=== PATIENT | female | born 1965 | race Caucasian/White ===

== ENCOUNTER 2016-11-15 08:08 | Day surgery (SDC) | payer MEDICAID ==
[~2016-11-15 08:08] MED LIST: Lactated Ringers 1,000 ML IV SCH; Lidocaine 2% 5 ML SDV ONE; Propofol 200 MG/20 ML SDV ONE; Sodium Chloride 0.9% 10 ML Syringe FLUSH PRN; Sodium Chloride 0.9% 2.5 ML Syringe FLUSH PRN
--- NOTE | 2016-11-15 08:53 | PCM.PREANE ---
Preanesthetic Assessment - Anesthesia/Transfusion/Family Hx Anesthesia History: Prior Anesthesia Without Reaction Other Type of Anesthesia Reaction Comment: "slow to wake" Family History of Anesthesia Reaction: No Transfusion History: Prior Transfusion Without Reaction - Review of Systems General: No Symptoms Pulmonary: No Symptoms Cardiovascular: No Symptoms 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: Constipation Neurological: No Symptoms Other: Reports: None - Physical Assessment NPO Status Date: 11/14/16 NPO Status Time: 22:00 O2 Sat by Pulse Oximetry: 97 Respiratory Rate: 16 Vital Signs: Last Vital Signs Temp 36.7 C 11/15/16 08:35 Pulse 87 11/15/16 08:35 Resp 16 11/15/16 08:35 BP 113/56 L 11/15/16 08:35 Pulse Ox 97 11/15/16 08:35 Height: 1.7 m Weight: 102.512 kg ASA Class: 3 Mental Status: Alert & Oriented x3 Airway Class: Mallampati = 2 Dentition: Reports: Normal Dentition Thyro-Mental Finger Breadths: 2 Mouth Opening Finger Breadths: 2 ROM/Head Extension: Limited/Partial Lungs: Clear to auscultation, Normal respiratory effort Cardiovascular: Regular Rate, Regular Rhythm - Lab Values: Laboratory Last Values POC Glucose 115 mg/dL (60-110) H 11/15/16 08:26 - Allergies Allergies/Adverse Reactions: Allergies Allergy/AdvReac Type Severity Reaction Status Date / Time aloe vera [From Flexall] Allergy Anxiety Verified 11/12/16 10:37 menthol [From Flexall] Allergy Anxiety Verified 11/12/16 10:37 Penicillins Allergy Hives Verified 11/12/16 10:37 vitamin E (d-alpha Allergy Anxiety Verified 11/12/16 10:37 tocopherol) [From Flexall] - Blood Blood Available: No - Anesthesia Plan Pre-Op Medication Ordered: None - Acknowledgements Anesthesia Type Planned: MAC Pt an Appropriate Candidate for the Planned Anesthesia: Yes Alternatives and Risks of Anesthesia Discussed w Pt/Guardian: Yes Pt/Guardian Understands and Agrees with Anesthesia Plan: Yes PreAnesthesia Questionnaire HEENT History: Reports: Other (see below) Other HEENT History: wears glasses Cardiovascular History: Reports: High cholesterol 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 History: Reports: Chronic constipation, Other (see below) Other 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 History: 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: Musculoskeletal History: Reports: Arthritis, Back pain, chronic Neurological History: Reports: Migraines Psychiatric History: Reports: Anxiety, Depression Endocrine/Metabolic History: Reports: Diabetes, type II, Obesity/BMI 30+ Hematologic History: Reports: Blood transfusion(s) Other Hematologic History: transfusion with back surgery - Past Surgical History Head Surgeries/Procedures: Reports: None GI Surgical History: Reports: Cholecystectomy Neurological Surgical History: Reports: C-Spine (ACDF), Lumbar spine, Other ( see below) Other Neurological Surgeries/Procedures: back and neck fusion - SUBSTANCE USE Smoking Status *Q: Current Some Day Smoker Tobacco Use Within Last Twelve Months: Cigarettes Recreational Drug Use History: No - HOME MEDS Home Medications: Home Meds Aspirin [[place] Aspirin] 81 mg PO DAILY 11/12/16 [History] Celecoxib [CeleBREX] 200 mg PO BID 11/12/16 [History] Citalopram Hydrobromide [Celexa] 40 mg PO DAILY 11/12/16 [History] Diazepam [Valium] 10 mg PO DAILY 11/12/16 [History] Gabapentin [Neurontin] 2 tab PO DAILY 11/12/16 [History] Ibuprofen 800 mg PO ASDIRECTED PRN 11/12/16 [History] Insulin Glargine,Hum.Rec.Anlog [[place] Solostar] 20 units SUBCUT DAILY 11/12/16 [History] Montelukast Sodium [Singulair] 10 mg PO DAILY 11/12/16 [History] Pantoprazole Sodium [Protonix] 40 mg PO DAILY 11/12/16 [History] atorvaSTATin Calcium [Atorvastatin Calcium] 20 mg PO DAILY 11/12/16 [History] glipiZIDE [Glipizide Xl] 5 mg PO DAILY 11/12/16 [History] - CURRENT (IN HOUSE) MEDS Current Meds: Current Medications Lactated Ringer's (Ringers, Lactated) 1,000 mls @ 125 mls/hr IV ASDIRECTED JOVANI Last Admin: 11/15/16 08:34 Dose: 125 mls/hr Sodium Chloride (Saline Flush) 10 ml FLUSH ASDIRECTED PRN PRN Reason: Keep Vein Open Sodium Chloride (Saline Flush) 2.5 ml FLUSH ASDIRECTED PRN PRN Reason: Keep Vein Open Discontinued Medications Lidocaine (Xylocaine-Mpf 2%) Confirm Administered Dose 5 ml .ROUTE .STK-MED ONE Stop: 11/15/16 07:41 Propofol (Diprivan 20 Ml) Confirm Administered Dose 400 mg .ROUTE .STK-MED ONE Stop: 11/15/16 07:41
--- NOTE | 2016-11-15 11:21 | PCM48HPAN ---
Post Anesthesia Note - EVALUATION WITHIN 48HRS OF ANESTHETIC Vital Signs in Normal Range: Yes Patient Participated in Evaluation: Yes Respiratory Function Stable: Yes Airway Patent: Yes Cardiovascular Function Stable: Yes Hydration Status Stable: Yes Pain Control Satisfactory: Yes Nausea and Vomiting Control Satisfactory: Yes Mental Status Recovered: Yes - COMMENTS/OBSERVATIONS Free Text/Narrative:: no anesthesia problems. Patient skipped recovery room phase of postoperative care.
--- NOTE | 2016-11-15 18:02 | OR ---
SURGEON: GILMER PRESTON MD DATE OF PROCEDURE: 11/15/2016 PREOPERATIVE DIAGNOSIS: Screening colonoscopy. POSTOPERATIVE DIAGNOSES: Diverticulosis, anal condylomas, and anal skin tags. PROCEDURE PERFORMED: Screening colonoscopy. INSTRUMENT USED: Olympus colonoscope. ANESTHESIA: MAC. EXTENT OF EXAM: To the cecum. PREPARATION: Good. LIMITATIONS: None. INDICATIONS: The patient is a 51-year-old female, who presents for first time screening colonoscopy. The patient and I discussed the procedure as well as expected perioperative course. The patient and I discussed the risks including bleeding, infection, or damage to surrounding structures, including perforation. The patient verbalized understanding and wishes to proceed. PROCEDURE IN DETAIL: The patient was brought to the endoscopy suite and placed in left lateral decubitus position. A time-out was completed verifying the patient's name, age, date of , allergies, and procedure to be performed. The monitored anesthesia care was induced and continuous oxygen was provided via nasal cannula throughout the procedure. After adequate sedation was achieved, a digital rectal exam was performed. The patient had a large number of anal skin tags as well as grade 2 hemorrhoids, and anal condylomata on the skin tags. A photograph was taken of these. The remainder of the digital rectal exam was normal. A well lubricated colonoscope was then inserted into the rectum and advanced under direct visualization to the level of the cecum. The cecum was identified by both visual and anatomic landmarks. A photograph was taken of the cecal cap as well as with the scope retroflexed within the cecum. The scope was then fully withdrawn while examining the color, texture, anatomy, and integrity of the mucosa from the cecum to the anal canal. The findings were consistent with diverticulosis. The scope was then brought into the rectum and retroflexed to allow visualization of the anal canal opening. This was normal. The scope was then straightened out and removed from the patient. The patient was then transferred to the recovery room in stable condition. Cecum to anus time was 13 minutes. ENDOSCOPIC DIAGNOSES: 1. Diverticulosis. 2. Grade 2 hemorrhoids. 3. Anal condylomata. RECOMMENDATIONS: Follow up in clinic in 2 weeks. JAVI LIM /[id number] ROGELIO
== END 2016-11-15 11:20 | disposition home or self-care (01) ==
LOC: MW.SDS 08:08
PROVIDERS: ATTEND Surgery
PROC: 0DJD8ZZ Inspection of Lower Intestinal Tract, Via Natural or Artificial Opening Endoscopic (ICD-10-PCS; principal; 2016-11-15)
DX: Z12.11 Encounter for screening for malignant neoplasm of colon (principal); K64.1 Second degree hemorrhoids; K64.4 Residual hemorrhoidal skin tags; A63.0 Anogenital (venereal) warts; K57.30 Diverticulosis of large intestine without perforation or abscess without bleeding; Z88.0 Allergy status to penicillin; Z88.8 Allergy status to other drugs, medicaments and biological substances; E78.00 Pure hypercholesterolemia, unspecified; K59.09 Other constipation; M19.90 Unspecified osteoarthritis, unspecified site; G89.29 Other chronic pain; M54.9 Dorsalgia, unspecified; F41.9 Anxiety disorder, unspecified; F32.9 Major depressive disorder, single episode, unspecified; E11.9 Type 2 diabetes mellitus without complications; E66.9 Obesity, unspecified; F17.210 Nicotine dependence, cigarettes, uncomplicated; Z98.1 Arthrodesis status; Z90.49 Acquired absence of other specified parts of digestive tract; Z98.890 Other specified postprocedural states; Z79.4 Long term (current) use of insulin; Z79.84 Long term (current) use of oral hypoglycemic drugs; Z79.82 Long term (current) use of aspirin; Z79.899 Other long term (current) drug therapy
CPT/HCPCS: 36415; 45378; 82962; 84703; J7120; 00810; J2704

== ENCOUNTER 2016-11-27 06:22 | Day surgery (SDC) | payer MEDICAID ==
[~2016-11-27 06:22] MED LIST changes: -Lidocaine 2% 5 ML SDV ONE; -Propofol 200 MG/20 ML SDV ONE; -Sodium Chloride 0.9% 10 ML Syringe FLUSH PRN; -Sodium Chloride 0.9% 2.5 ML Syringe FLUSH PRN
--- NOTE | 2016-11-27 07:18 | PCM.PREANE ---
Preanesthetic Assessment - Anesthesia/Transfusion/Family Hx Anesthesia History: Prior Anesthesia Without Reaction Other Type of Anesthesia Reaction Comment: "slow to wake" Family History of Anesthesia Reaction: Other (see below) Transfusion History: No Prior Transfusion(s) Intubation History: Unknown - Review of Systems General: No Symptoms Pulmonary: No Symptoms Cardiovascular: No Symptoms 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: No symptoms Neurological: No Symptoms Other: Reports: None - Physical Assessment Height: 1.71 m Weight: 102.058 kg ASA Class: 3 Mental Status: Alert & Oriented x3 Airway Class: Mallampati = 2 Dentition: Reports: Normal Dentition Thyro-Mental Finger Breadths: 3 Mouth Opening Finger Breadths: 2 ROM/Head Extension: Limited/Partial Lungs: Clear to auscultation, Normal respiratory effort Cardiovascular: Regular Rate, Regular Rhythm - Lab Values: Laboratory Last Values WBC 9.02 K/uL (4.0-11.0) 11/27/16 06:49 RBC 4.51 M/uL (4.30-5.90) 11/27/16 06:49 Hgb 13.7 g/dL (12.0-16.0) 11/27/16 06:49 Hct 40.9 % (36.0-46.0) 11/27/16 06:49 MCV 90.7 fL (80.0-98.0) 11/27/16 06:49 MCH 30.4 pg (27.0-32.0) 11/27/16 06:49 MCHC 33.5 g/dL (31.0-37.0) 11/27/16 06:49 RDW Std Deviation 46.2 fl (28.0-62.0) 11/27/16 06:49 RDW Coeff of Rosa Isela 14 % (11.0-15.0) 11/27/16 06:49 Plt Count 283 K/uL (150-400) 11/27/16 06:49 MPV 9.80 fL (7.40-12.00) 11/27/16 06:49 Nucleated RBC % 0.0 /100WBC 11/27/16 06:49 Nucleated RBCs # 0 K/uL 11/27/16 06:49 - Allergies Allergies/Adverse Reactions: Allergies Allergy/AdvReac Type Severity Reaction Status Date / Time aloe vera [From Flexall] Allergy Anxiety Verified 11/12/16 10:37 menthol [From Flexall] Allergy Anxiety Verified 11/12/16 10:37 Penicillins Allergy Hives Verified 11/12/16 10:37 vitamin E (d-alpha Allergy Anxiety Verified 11/12/16 10:37 tocopherol) [From Flexall] - Blood Blood Available: No - Anesthesia Plan Pre-Op Medication Ordered: None - Acknowledgements Anesthesia Type Planned: General Anesthesia Pt an Appropriate Candidate for the Planned Anesthesia: Yes Alternatives and Risks of Anesthesia Discussed w Pt/Guardian: Yes Pt/Guardian Understands and Agrees with Anesthesia Plan: Yes PreAnesthesia Questionnaire HEENT History: Reports: None Other HEENT History: wears glasses Cardiovascular History: Reports: High cholesterol Respiratory History: Reports: None 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 History: Reports: GERD Other 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 History: states hx gastric ulcer Genitourinary History: Reports: None 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: Musculoskeletal History: Reports: Back pain, chronic, Neck pain, chronic Neurological History: Reports: None Psychiatric History: Reports: Depression Endocrine/Metabolic History: Reports: Diabetes, type II, Obesity/BMI 30+ Hematologic History: Reports: None Other Hematologic History: transfusion with back surgery Immunologic History: Reports: None Oncologic (Cancer) History: Reports: None Dermatologic History: Reports: None - Past Surgical History Head Surgeries/Procedures: Reports: None HEENT Surgical History: Reports: Oral surgery Other HEENT Surgeries/Procedures: wisdom teeth Cardiovascular Surgical History: Reports: None Respiratory Surgical History: Reports: None GI Surgical History: Reports: Cholecystectomy, Colonoscopy Female Surgical History: Reports: Breast biopsy, Tubal ligation Male Surgical History: Endocrine Surgical History: Reports: None Neurological Surgical History: Reports: None Musculoskeletal Surgical History: Reports: Other (see below) Other Musculoskeletal Surgeries/Procedures:: lumbar and cervical fusion Oncologic Surgical History: Reports: Biopsy of breast - SUBSTANCE USE Smoking Status *Q: Current Every Day Smoker (< 1/2 ppd) Tobacco Use Within Last Twelve Months: Cigarettes Recreational Drug Use History: No - HOME MEDS Home Medications: Home Meds Aspirin [[place] Aspirin] 81 mg PO DAILY 11/12/16 [History] Celecoxib [CeleBREX] 200 mg PO BID 11/12/16 [History] Citalopram Hydrobromide [Celexa] 40 mg PO DAILY 11/12/16 [History] Diazepam [Valium] 10 mg PO DAILY 11/12/16 [History] Gabapentin [Neurontin] 600 mg PO BID 11/12/16 [History] Ibuprofen 800 mg PO ASDIRECTED PRN 11/12/16 [History] Insulin Glargine,Hum.Rec.Anlog [[place] Solostar] 20 units SUBCUT DAILY 11/12/16 [History] Montelukast Sodium [Singulair] 10 mg PO DAILY 11/12/16 [History] Pantoprazole Sodium [Protonix] 40 mg PO DAILY 11/12/16 [History] atorvaSTATin Calcium [Atorvastatin Calcium] 20 mg PO DAILY 11/12/16 [History] glipiZIDE [Glipizide Xl] 5 mg PO BID 11/12/16 [History] - CURRENT (IN HOUSE) MEDS Current Meds: Current Medications Lactated Ringer's (Ringers, Lactated) 1,000 mls @ 125 mls/hr IV ASDIRECTED JOVANI Last Admin: 11/27/16 06:47 Dose: 125 mls/hr
[2016-11-27 07:37] LABS: CHLORIDE,CL 109 mmol/L (98-110); SODIUM,NA 139 mmol/L (136-146)
[2016-11-27] MEDS ORDERED: Lidocaine 2% 5 ML SDV ONE (07:41)
[2016-11-27] MEDS ORDERED: Propofol 200 MG/20 ML SDV ONE (07:41)
[2016-11-27] MEDS ORDERED: Midazolam 1 MG/ML 2 ML SDV ONE (07:42)
[2016-11-27] MEDS ORDERED: fentaNYL 100 MCG/2 ML SDV ONE ×2 (07:42→09:21)
[2016-11-27] MEDS ORDERED: Phenylephrine/Normal Saline 100 MCG/ML 10 ML Syringe ONE (09:24)
[2016-11-27] MEDS ORDERED: Ondansetron 4 MG/2 ML SDV ONE (09:34)
[2016-11-27] MEDS ORDERED: Ketorolac 30 MG/ML SDV ONE (09:34)
[2016-11-27] MEDS: fentaNYL 100 MCG/2 ML SDV IVPUSH PRN ×4 (10:16→10:32)
--- NOTE | 2016-11-27 10:48 | PCM.OPNOTE ---
- General Post-Op/Procedure Note Date of Surgery/Procedure: 11/27/16 Operative Procedure(s): Diagnostic hysteroscopy. Endometrial ablation Findings: Anteverted uterus, sounded to 8cm. No adnexal masses palpable. No cervical lesion. Normal endometrial cavity. Both fallopian tubes ostia visualized. Ist degree cystocele, small uretherocele and 2nd degree rectocele Pre Op Diagnosis: Menorrhagia Post-Op Diagnosis: Same Anesthesia Technique: General ET tube Primary Surgeon: Jumana Escobar Fluid Replacement, Intraop: 1,500 EBL in mLs: 5 Complications: None Condition: Good Free Text/Narrative:: Intake & Output 11/26/16 11/27/16 11/27/16 22:59 06:59 14:59 Intake Total 1650 Balance 1650
--- NOTE | 2016-11-27 19:29 | OR ---
SURGEON: Jumana Escobar MD DATE OF PROCEDURE: 11/27/2016 PREOPERATIVE DIAGNOSIS: Menorrhagia POSTOPERATIVE DIAGNOSIS: Menorrhagia PROCEDURE PERFORMED: 1. Diagnostic hysteroscopy. 2. Endometrial ablation. ANESTHESIA: General endotracheal. ESTIMATED BLOOD LOSS: Minimal. FINDINGS: Mobile, anteverted uterus, sounded to 8 cm. No cervical lesions or adnexal masses palpable. Small urethraocele, 1st degree cystocele, and second-degree rectocele. Hysteroscopy findings revealed thin endometrial lining with no polyps or fibroids seen. Both fallopian tubes ostia were visualized. COMPLICATIONS: None. DISPOSITION: Stable to recovery room. BRIEF HISTORY: The patient is a 51-year-old, Para 2, who was evaluated in the office for heavy periods with irregular cycles. Her office evaluation included a pelvic ultrasound,which was normal and the endometrial biopsy was consistent with secretory phase cycle. After extensive discussion with the patient on various management for menorrhagia, she opted to have an endometrial ablation. The surgical risks were discussed including but not limited to bleeding, infection, uterine perforation, and injury to the surrounding organs. She understands that with an ablation there is an increased risk of masking future endometrial premalignant/malignant pathologies and also a risk of post tubal ablation syndrome especially in the patients with tubal ligation. After understanding these risks, the patient opted to proceed with the surgery and appropriate consent was obtained. DESCRIPTION OF PROCEDURE: The patient was taken to the operating room, where general anesthesia induction was performed without difficulty. After adequate level of anesthesia, she was prepped in dorsal lithotomy position, prepped and draped in the usual sterile fashion for vaginal surgery. The bladder was emptied. Examination under anesthesia revealed the aforementioned findings. A bivalve speculum was placed in the vagina but this was changed out as it kept falling out due to redundant vaginal wall, it was replaced with two [place] retractors placed into the posteriorly and anteriorly. Good visualization of the cervix was achieved by this manner. The anterior lip of the cervix was grasped with a single-toothed tenaculum and the uterine cavity was sounded to a depth of 8 cm. The os was serially dilated to a #5 Hegar dilator and a 5 mm diagnostic scope was inserted into the uterine cavity under direct visualization using normal saline as distention media. Upon entering the uterine cavity, the patient was noted to have no pathology as already mentioned. The hysteroscope was then withdrawn. The cervix was then serially dilated up to a #8 Hegar dilator. The Mireva machine was set up and primed according to curb builder's guidelines. Subtracting cervical length from the total uterine length, the handpiece was placed at [address] in [address]. The handpiece was then gently inserted into the endometrial cavity. Once the tip reached the uterus and this was withdrawn slightly and the handpiece was deployed, but the array opening indicator did not advance into the green zone. The Kaia handpiece was then removed, the length of the uterus was adjusted to 4 cm. It was then reintroduced into the endometrial cavity and once again, once the tip reached the fundus, it was withdrawn slightly and the handpiece was deployed. This time around, the array opening indicator advanced into the green zone. The cervical balloon was then inflated and the uterine integrity test was successful. The endometrial ablation cycle was then commenced for a total of 120 seconds. Once this was completed, the cervical balloon was deflated and the Kaia handpiece was removed from the endometrial cavity. Due to the fact that I had inserted the handpiece, a couple of times to be able to get the appropriate uterine cavity integrity test, I then resected the hysteroscopy to make sure that there was no injury, and the endometrial lining was noted to have been ablated adequately and no injuries noted. All instruments were then removed from the patient's vagina. The single-toothed clamp was removed from the cervix and the area was noted to be hemostatic. The vagina was cleaned. All sponge, instrument counts were correct at the end of the procedure. The input and output of normal saline was calculated by the [place] fluid management system and the deficit was documented on the nurse's chart. Please refer to it for accurate amounts. The patient was taken to the recovery room in stable condition. JERROD / RAPHAEL /[id number] ROGELIO
== END 2016-11-27 11:14 | disposition home or self-care (01) ==
LOC: MW.SDS 06:22
PROVIDERS: ATTEND Obstetrics & Gynecology
DX: N92.1 Excessive and frequent menstruation with irregular cycle (principal); N81.10 Cystocele, unspecified; N81.6 Rectocele; E11.9 Type 2 diabetes mellitus without complications; F32.9 Major depressive disorder, single episode, unspecified; M50.33 Other cervical disc degeneration, cervicothoracic region; E78.00 Pure hypercholesterolemia, unspecified; F17.210 Nicotine dependence, cigarettes, uncomplicated; Z79.899 Other long term (current) drug therapy; Z79.82 Long term (current) use of aspirin; Z98.51 Tubal ligation status; Z90.49 Acquired absence of other specified parts of digestive tract; Z98.890 Other specified postprocedural states; Z98.1 Arthrodesis status; Z88.0 Allergy status to penicillin; Z88.8 Allergy status to other drugs, medicaments and biological substances
CPT/HCPCS: 36415; 58563; 80053; 84703; 85027; J1885; J2250; J2405; J3010; J7120; 00952; J2704

== ENCOUNTER 2018-01-06 08:29 | Day surgery (SDC) | payer OTHER, BC ==
[~2018-01-06 08:29] MED LIST changes: +Acetaminophen/HYDROcodone 325-10 MG Tab PO PRN; +Clindamycin Phosphate in D5W 900 MG in Premix Bag 1 BAG IV SCH; +Dexamethasone 4 MG/ML 5 ML MDV ONE; +Ketorolac 10 MG Tab PO PRN; +Lidocaine 2% 5 ML SDV ONE; +Midazolam 1 MG/ML 2 ML SDV ONE; +Ondansetron 4 MG/2 ML SDV ONE; +Propofol 200 MG/20 ML SDV ONE; +Rocuronium 10 MG/ML 10 ML Syringe ONE; +diphenhydrAMINE 50 MG/ML SDV ONE; +fentaNYL 100 MCG/2 ML SDV ONE; +fentaNYL 250 MCG/5 ML SDV ONE
[2018-01-06] MEDS ORDERED: Dexamethasone 4 MG/ML 5 ML MDV ONE (08:34)
[2018-01-06] MEDS ORDERED: Bupivacaine 0.5% 30 ML SDV ONE (08:35)
--- NOTE | 2018-01-06 09:13 | PCM.PREANE ---
Preanesthetic Assessment - Anesthesia/Transfusion/Family Hx Anesthesia History: Prior Anesthesia Without Reaction Other Type of Anesthesia Reaction Comment: pt adopted, unsure of family hx Family History of Anesthesia Reaction: No Transfusion History: No Prior Transfusion(s) Intubation History: Unknown - Review of Systems General: No Symptoms Pulmonary: No Symptoms Cardiovascular: No Symptoms 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: No Symptoms Neurological: No Symptoms Other: Reports: None - Physical Assessment NPO Status Date: 01/05/18 Height: 1.71 m Weight: 83.915 kg ASA Class: 2 Mental Status: Alert & Oriented x3 Airway Class: Mallampati = 1 Dentition: Reports: Normal Dentition ROM/Head Extension: Full Lungs: Clear to Auscultation, Normal Respiratory Effort Cardiovascular: Regular Rate, Regular Rhythm - Allergies Allergies/Adverse Reactions: Allergies Allergy/AdvReac Type Severity Reaction Status Date / Time cyclobenzaprine Allergy Anxiety Verified 01/01/18 07:57 [From Flexeril] Penicillins Allergy Hives Verified 01/01/18 07:57 - Blood Blood Available: No - Anesthesia Plan Pre-Op Medication Ordered: Other (versed and fentanyl for sedation/analgesia at time of ISB placement) - Acknowledgements Anesthesia Type Planned: General Anesthesia Pt an Appropriate Candidate for the Planned Anesthesia: Yes Alternatives and Risks of Anesthesia Discussed w Pt/Guardian: Yes Pt/Guardian Understands and Agrees with Anesthesia Plan: Yes Additional Comments: PMH: DM2 on insulin, cut lantus insulin dose in half last night. glucose this am was 120s. smoker, hld PLAN: GET for intraoperative anesthesia, ISB for post operative pain management. 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: Musculoskeletal History: Reports: Arthritis Neurological History: Reports: None Psychiatric History: Endocrine/Metabolic History: Reports: Diabetes, Type II Hematologic History: Immunologic History: Oncologic (Cancer) History: Reports: None Dermatologic History: Reports: None - Past Surgical History Head Surgeries/Procedures: Reports: None HEENT Surgical History: Reports: Oral Surgery Other HEENT Surgeries/Procedures: wisdom teeth Cardiovascular Surgical History: Reports: None Respiratory Surgical History: Reports: None GI Surgical History: Reports: Cholecystectomy, Colonoscopy Female Surgical History: Reports: Breast Biopsy, Tubal Ligation Endocrine Surgical History: Reports: None Neurological Surgical History: Reports: C-Spine, Lumbar Spine Other Neurological Surgeries/Procedures: back and neck fusion Musculoskeletal Surgical History: Reports: Other (See Below) Other Musculoskeletal Surgeries/Procedures:: lumbar and cervical fusion Oncologic Surgical History: Reports: Biopsy of Breast - SUBSTANCE USE Smoking Status *Q: Current Every Day Smoker Tobacco Use Within Last Twelve Months: Cigarettes Recreational Drug Use History: No - HOME MEDS Home Medications: Home Meds Montelukast Sodium [Singulair] 10 mg PO BEDTIME 11/12/16 [History] atorvaSTATin Calcium [Atorvastatin Calcium] 40 mg PO DAILY 11/12/16 [History] Acetaminophen [Tylenol Extra Strength] 2 - 3 tab PO ASDIRECTED PRN 01/01/18 [ History] Black Cohosh Root Extract [Black Cohosh] 160 mg PO DAILY 01/01/18 [History] Cholecalciferol (Vitamin D3) [Vitamin D3] 400 units CHEW DAILY 01/01/18 [History ] Diclofenac Sodium [Voltaren] 75 mg PO BID 01/01/18 [History] Empagliflozin [Jardiance] 10 mg PO DAILY 01/01/18 [History] Insulin Glarg,Human.Rec.Analog [Lantus] 10 units SUBCUT BEDTIME 01/01/18 [ History] Lisinopril 5 mg PO DAILY 01/01/18 [History] Vitamin B Complex 1 tab PO DAILY 01/01/18 [History] - CURRENT (IN HOUSE) MEDS Current Meds: Current Medications Hydrocodone Bitart/Acetaminophen ([place] 325-10 Mg) 1 - 2 tab PO Q4H PRN PRN Reason: Pain Clindamycin Phosphate 900 mg/ (Premix) 50 mls @ 100 mls/hr IV ONCALL JOVANI Lactated Ringer's (Ringers, Lactated) 1,000 mls @ 100 mls/hr IV ASDIRECTED JOVANI Ketorolac Tromethamine (Toradol) 10 mg PO Q6H PRN PRN Reason: Pain Stop: 01/11/18 08:01 Discontinued Medications Bupivacaine HCl (Marcaine 0.5%) Confirm Administered Dose 30 ml .ROUTE .STK-MED ONE Stop: 01/06/18 08:36 Dexamethasone (Dexamethasone) Confirm Administered Dose 20 mg .ROUTE .STK-MED ONE Stop: 01/06/18 08:05 Dexamethasone (Dexamethasone) Confirm Administered Dose 20 mg .ROUTE .STK-MED ONE Stop: 01/06/18 08:35 Diphenhydramine HCl (Benadryl) Confirm Administered Dose 50 mg .ROUTE .STK-MED ONE Stop: 01/06/18 08:05 Fentanyl (Sublimaze) Confirm Administered Dose 100 mcg .ROUTE .STK-MED ONE Stop: 01/06/18 08:05 Fentanyl (Sublimaze) Confirm Administered Dose 250 mcg .ROUTE .STK-MED ONE Stop: 01/06/18 08:05 Lidocaine HCl (Xylocaine-Mpf 1%) Confirm Administered Dose 5 mls @ as directed .ROUTE .ST-MED ONE Stop: 01/06/18 08:35 Lidocaine (Xylocaine-Mpf 2%) Confirm Administered Dose 5 ml .ROUTE .STK-MED ONE Stop: 01/06/18 08:05 Midazolam HCl (Versed 1 Mg/Ml) Confirm Administered Dose 2 mg .ROUTE .STK-MED ONE Stop: 01/06/18 08:05 Ondansetron HCl (Zofran) Confirm Administered Dose 4 mg .ROUTE .STK-MED ONE Stop: 01/06/18 08:05 Propofol (Diprivan 20 Ml) Confirm Administered Dose 200 mg .ROUTE .STK-MED ONE Stop: 01/06/18 08:05 Rocuronium [place] (Zemuron) Confirm Administered Dose 100 mg .ROUTE .STK-MED ONE Stop: 01/06/18 08:05
--- NOTE | 2018-01-06 10:14 | PCM.SN ---
- Free Text/Narrative Note: procedure note. isb placed on R at 1010. cpnsent obtained, time out performed. full monitoring , nc O2, sedated with versed and fentynyl 2+ 50, lido in skin, chloroprep skin prep. Immediate twitch in shoulder without paresthesia. extinguished at < 40, neg response to first ml, then dosed in 5 ml increments to dose of 28 ml of 0.5 % bupivicaine with 8 mg dexamethasone. No comps.
[2018-01-06] MEDS ORDERED: Succinylcholine 200 MG/10 ML MDV ONE (10:48)
[2018-01-06] MEDS ORDERED: Phenylephrine 1% 10 MG/ML SDV ONE (10:48)
--- NOTE | 2018-01-06 11:51 | PCM.OPNOTE ---
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
--- NOTE | 2018-01-06 12:52 | PCM48HPAN ---
Post Anesthesia Note - EVALUATION WITHIN 48HRS OF ANESTHETIC Vital Signs in Normal Range: Yes Patient Participated in Evaluation: Yes Respiratory Function Stable: Yes Airway Patent: Yes Cardiovascular Function Stable: Yes Hydration Status Stable: Yes Pain Control Satisfactory: Yes Nausea and Vomiting Control Satisfactory: Yes Mental Status Recovered: Yes Resp Rate: 10
--- NOTE | 2018-01-06 12:53 | OR ---
SURGEON: Bhavya Carbajal MD DATE OF PROCEDURE: 01/06/2018 PREOPERATIVE DIAGNOSES: 1. Left shoulder impingement syndrome. 2. Left shoulder biceps tendinopathy. POSTOPERATIVE DIAGNOSES: 1. Left shoulder impingement syndrome. 2. Left shoulder biceps tendinopathy. 3. 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 PROCEDURE: Left shoulder arthroscopy with: 1. Subacromial decompression with release of coracoacromial ligament and acromioplasty. 2. Extensive debridement including biceps tenotomy, debridement of degenerative anterior and posterior labral tears. PLANT MAINTENANCE ENGINEER: Gloria Sow PA-C ANESTHESIA: General with interscalene block. ESTIMATED BLOOD LOSS: 5 mL. TOURNIQUET TIME: 0 minutes. COMPLICATIONS: None. DEEP VENOUS THROMBOSIS PROPHYLAXIS: PAS boot to bilateral lower extremities. IMPLANTS USED: None. BRIEF HISTORY: Lakisha is a 52-year-old female, who has had complaint of left shoulder pain following a work-related injury. She had failed conservative treatment. Due to her lack of response to conservative treatment, I did recommend surgical intervention. Goals of procedure were discussed with the patient and were documented preoperatively. She agreed to proceed. DESCRIPTION OF PROCEDURE: The patient was properly identified and brought to the operating room. She was transferred from the OR cart and placed on the operating table in supine position. General anesthesia was administered. An interscalene block had been administered preoperatively. After adequate anesthesia was obtained, the patient was placed into a beach-chair type position. Care was taken to pad all bony prominences. Her head was secured. Left upper extremity was then prepped in standard fashion using ChloraPrep solution. It was then sterilely draped. A time-out was performed to ensure correct site and procedure. Preoperative antibiotics were given. The surgical site had been marked preoperatively. A marking pen was used to identify the bony landmarks in the shoulder. Approximately 30 mL of normal saline was introduced into the glenohumeral joint. A posterior portal was made. Blunt trocar and cannula were introduced into the glenohumeral joint. Camera, inflow, and outflow were assembled. The rotator interval showed mild synovitis. An anterior portal was established. The subscapular showed minor degenerative fraying along its insertion. Majority of the subscapularis was intact. This was gently debrided with electrocautery. Subscapular recess showed no loose bodies. The biceps was then inspected. She did have some synovitis noted along the distal portion of the biceps tendon as it was pulled into the joint. The attachment of the biceps to the labrum also showed peel back and evidence of fraying. With this, combined with her clinical findings, I elected to proceed with a biceps tenotomy. Electrocautery was used to amputate the biceps at its insertion point onto the labrum. Biceps retracted easily back into the bicipital tendon sheath. Its attachment to the labrum was smoothed with electrocautery. There was found to be degenerative tearing of the anterior and posterior labrum, which was resected with a shaver to a stable remnant. The glenoid cartilage along with the humeral head cartilage appeared intact, and no signs of degenerative changes were noted. I entered the axillary pouch and no loose bodies were identified. The arm was then brought into an abducted and externally rotated position. The bare area was noted posteriorly. As I progressed forward, there was a small amount of undersurface tearing of the rotator cuff consisting of 1 to 2 mm. This was gently debrided with the shaver. No full thickness or extensive partial thickness tearing was noted. The arm was then brought back into a neutral position. The blunt trocar and cannula were introduced into the subacromial space. Again, camera, inflow, and outflow were assembled. A lateral portal was established. A shaver was introduced. She did have a significant amount of bursitis, which was resected with the shaver along with the electrocautery. The coracoacromial ligament was released along the anterior portion of the acromion. A type 2 acromion was noted, which appeared to be causing some impingement on the underlying rotator cuff. An extensive bursectomy was performed, which allowed for visualization of the rotator cuff. The rotator cuff was inspected along with probed and no softening or tearing was noted. A 5.0 mm dominic was then introduced into the shoulder. Acromioplasty was performed without difficulty. This provided good decompression of the subacromial space. Instruments were then removed from the shoulder. The portal sites were closed with 3-0 nylon. Xeroform gauze was placed over the wound, and a bulky dressing was applied. She was awakened from her anesthetic and transferred back to the operating room cart. She was brought to recovery room in stable condition. All needle and sponge counts were correct. GIUSEPPE / RAPHAEL /[id number]
== END 2018-01-06 13:15 | disposition home or self-care (01) ==
LOC: MW.SDS 08:29
PROVIDERS: ATTEND Orthopaedic Surgery
DX: M75.42 Impingement syndrome of left shoulder (principal); M65.812 Other synovitis and tenosynovitis, left shoulder; S43.492A Other sprain of left shoulder joint, initial encounter; M75.102 Unspecified rotator cuff tear or rupture of left shoulder, not specified as traumatic; M75.52 Bursitis of left shoulder; F17.210 Nicotine dependence, cigarettes, uncomplicated; E78.00 Pure hypercholesterolemia, unspecified; K59.09 Other constipation; E11.9 Type 2 diabetes mellitus without complications; M19.90 Unspecified osteoarthritis, unspecified site; Z79.899 Other long term (current) drug therapy; Z79.1 Long term (current) use of non-steroidal anti-inflammatories (NSAID); Z79.4 Long term (current) use of insulin; Z88.0 Allergy status to penicillin; Z88.8 Allergy status to other drugs, medicaments and biological substances; W00.0XXA Fall on same level due to ice and snow, initial encounter; Y99.0 Civilian activity done for income or pay
CPT/HCPCS: 29822; J0330; J1100; J1200; J2250; J2370; J2405; J3010; J7120; 88304; J2704

== ENCOUNTER 2021-09-09 07:31 | Emergency (ER) | payer OTHER, BC | END 2021-09-09 10:09 | disposition home or self-care (01) | LOC: MW.ED 07:31 | DX: M62.838 Other muscle spasm (principal); E78.00 Pure hypercholesterolemia, unspecified; E11.9 Type 2 diabetes mellitus without complications; Z88.0 Allergy status to penicillin; Z88.8 Allergy status to other drugs, medicaments and biological substances; Z79.899 Other long term (current) drug therapy; Z79.4 Long term (current) use of insulin; Z72.0 Tobacco use | CPT/HCPCS: 72125; 72125-26; 99283; 99283-25 ==

== ENCOUNTER 2024-10-07 06:08 | Day surgery (SDC) | payer BC, OTHER ==
[~2024-10-07 06:08] MED LIST changes: +Acetaminophen 1,000 MG in Premix Bag 1 BAG IV SCH; -Acetaminophen/HYDROcodone 325-10 MG Tab PO PRN; -Clindamycin Phosphate in D5W 900 MG in Premix Bag 1 BAG IV SCH; -Dexamethasone 4 MG/ML 5 ML MDV ONE; -Ketorolac 10 MG Tab PO PRN; -Lactated Ringers 1,000 ML IV SCH; -Lidocaine 2% 5 ML SDV ONE; -Midazolam 1 MG/ML 2 ML SDV ONE; -Ondansetron 4 MG/2 ML SDV ONE; -Propofol 200 MG/20 ML SDV ONE; -Rocuronium 10 MG/ML 10 ML Syringe ONE; +Scopalamine 1mg/3day Transdermal Patch TOP ONE; +VANCOmycin 1.5 GM in Sodium Chloride 0.9% 250 ML IV ONE; -diphenhydrAMINE 50 MG/ML SDV ONE; -fentaNYL 100 MCG/2 ML SDV ONE; -fentaNYL 250 MCG/5 ML SDV ONE
[2024-10-07] MEDS: Pregabalin 75 MG Cap PO SCH (06:35)
[2024-10-07] MEDS: Lactated Ringers 1,000 ML IV SCH (07:11)
[2024-10-07] MEDS ORDERED: Bupivacaine 0.5% 30 ML SDV ONE (07:14)
[2024-10-07] MEDS ORDERED: Midazolam 1 MG/ML 2 ML SDV ONE (07:15)
[2024-10-07] MEDS ORDERED: Propofol 200 MG/20 ML SDV ONE (07:15)
[2024-10-07] MEDS ORDERED: fentaNYL 100 MCG/2 ML SDV ONE (07:15)
[2024-10-07] MEDS ORDERED: Ropivacaine 0.5% 5 MG/ML 30 ML SDV ONE (07:15)
[2024-10-07] MEDS ORDERED: Lidocaine 2% 5 ML SDV ONE (07:15)
[2024-10-07] MEDS ORDERED: Sodium Chloride 0.9% 20 ML ONE (07:16)
[2024-10-07] MEDS ORDERED: dexmedeTOMIDine HCl 200 MCG/2 ML SDV ONE (07:16)
[2024-10-07] MEDS ORDERED: Rocuronium Bromide 50 MG/5 ML Syringe ONE ×2 (07:16→09:05)
[2024-10-07] MEDS ORDERED: Naloxone 0.4 MG/ML SDV IVPUSH PRN (08:02)
[2024-10-07] MEDS ORDERED: Metoclopramide 10 MG/2 ML SDV IVPUSH PRN (08:02)
[2024-10-07] MEDS ORDERED: Albuterol 0.083% 2.5 MG/3 ML Neb Soln NEB PRN (08:02)
[2024-10-07] MEDS ORDERED: Ondansetron 4 MG/2 ML SDV IVPUSH PRN (08:02)
[2024-10-07] MEDS ORDERED: Phenylephrine HCl In 0.9% NaCl 1 MG/10 ML Syringe IVPUSH PRN (08:02)
[2024-10-07] MEDS ORDERED: Morphine 2 MG/ML SYRINGE IVPUSH PRN (08:02)
[2024-10-07] MEDS ORDERED: Phenylephrine HCl In 0.9% NaCl 1 MG/10 ML Syringe ONE (08:10)
[2024-10-07] MEDS ORDERED: Sugammadex Sodium 200 MG/2 ML VIAL IV ONE (08:12)
[2024-10-07] MEDS ORDERED: Ondansetron 4 MG/2 ML SDV ONE (08:12)
[2024-10-07] MEDS ORDERED: Dexamethasone 4 MG/ML 5 ML MDV ONE (08:12)
[2024-10-07] MEDS ORDERED: ePHEDrine 50 MG/ML SDV ONE (09:36)
[2024-10-07] MEDS ORDERED: Ketorolac 30 MG/ML SDV ONE (09:37)
[2024-10-07] MEDS ORDERED: HYDROmorphone 1 MG/ML Syringe ONE (09:46)
[2024-10-07] MEDS: HYDROmorphone 1 MG/ML Syringe IVPUSH PRN (10:18)
[2024-10-07] MEDS: fentaNYL 50 MCG/ML SDV IVPUSH PRN (10:18)
== END 2024-10-07 12:10 | disposition home or self-care (01) ==
LOC: MW.SDS 06:08
PROVIDERS: ATTEND Surgery
DX: K40.90 Unilateral inguinal hernia, without obstruction or gangrene, not specified as recurrent (principal); K42.0 Umbilical hernia with obstruction, without gangrene; E11.9 Type 2 diabetes mellitus without complications; E78.5 Hyperlipidemia, unspecified; F41.1 Generalized anxiety disorder; Z79.899 Other long term (current) drug therapy
CPT/HCPCS: 49592; 49650; A9270; C1781; J0131; J0665; J1100; J1171; J1885; J2003; J2250; J2371; J2405; J2704; J2795; J3010; J7120; J3490